=== PATIENT | male | born 1990 | race Two or more races ===

== ENCOUNTER 2023-09-12 21:32 | Emergency (ER) | payer OTHER ==
[~2023-09-12] VITALS: Ht 185.4 cm; Wt 84.4 kg
[2023-09-12] MEDS ORDERED: CLEOCIN HCL300 MG PO (23:21)
[2023-09-12] MEDS ORDERED: DESCOVY 200-251 EACH PO (23:22)
[2023-09-12] MEDS ORDERED: TIVICAY50 MG PO (23:22)
== END 2023-09-13 02:00 | disposition home or self-care (01) ==
LOC: ER 21:32
DX: L02.32 Furuncle of buttock (principal)